=== PATIENT | male | born 1985 | race Caucasian/White ===

== ENCOUNTER 2018-02-28 09:52 | Emergency (ER) | payer SELFPAY ==
[2018-02-28 10:07] VITALS: BP 141/84
--- NOTE | 2018-02-28 10:37 | UC ---
General HPI - HPI Summary HPI Summary: This pt is a 32 y/o male presenting to [facility] c/o runny nose, sinus congestion, post nasal drip for the past 5 days. Pt additionally reports chills, sinus pain , sore throat. Denies chest pain, SOB, cough. PMHx of HTN. - History of Current Complaint Chief Complaint: UCRespiratory Stated Complaint: SINUS COMPLAINT Time Seen by Provider: 02/28/18 10:10 Hx Obtained From: Patient Onset/Duration: Lasting Days - 5, Still Present Timing: Constant Current Severity: Mild Pain Intensity: 3 Pain Location at: throat Aggravating: nothing Alleviating: nothing Associated Signs & Symptoms: Positive: Other - POS: chills, sore throat, nasal discharge, sinus pain.. Negative: Abdominal Pain, Cough, Chest Pain, Fever, Nausea, SOB, Vomiting - Allergy/Home Medications Allergies/Adverse Reactions: Allergies Allergy/AdvReac Type Severity Reaction Status Date / Time bee venom protein (honey bee) Allergy Numbness Verified 02/28/18 10:07 Home Medications: Home Medications amLODIPine TAB* [Norvasc 5 mg TAB*] 10 mg PO DAILY 02/28/18 [History Confirmed 02/28/18] PMH/Surg Hx/FS Hx/Imm Hx Other Endocrine History: DENIES: diabetes Cardiovascular History: Hypertension Psychological History: Depression - Surgical History Surgical History: None - Family History Known Family History: Positive: Diabetes - Social History Alcohol Use: Daily Alcohol Amount: 4-6 beers/day Substance Use Type: None Substance Use Comment - Amount & Last Used: patient denies illicit drug use Smoking Status (MU): Heavy Every Day Tobacco Smoker Type: Cigarettes Amount Used/How Often: 1 ppd - Immunization History Most Recent Influenza Vaccination: believes he received "many" years ago Most Recent Tetanus Shot: states he thinks he had tetanus shot in the last 8-10 years Most Recent Pneumonia Vaccination: has not received Review of Systems Constitutional: Chills, Other - NEG: fever Skin: Negative Eyes: Negative ENT: Sore Throat, Nasal Discharge, Sinus Congestion, Sinus Pain/Tenderness Respiratory: Negative Cardiovascular: Negative Gastrointestinal: Negative Genitourinary: Negative Motor: Negative Neurovascular: Negative Musculoskeletal: Negative Neurological: Negative Psychological: Negative All Other Systems Reviewed And Are Negative: Yes Physical Exam - Summary Physical Exam Summary: VITAL SIGNS: Reviewed. GENERAL: Patient is a well-developed and nourished male who is lying comfortable in the stretcher. Patient is not in any acute respiratory distress. HEAD AND FACE: Normocephalic. Clear nasal discharge. Positive sinus tenderness. EYES: PERRLA, EOMI x 2. EARS: Hearing grossly intact. MOUTH: Oropharynx within normal limits. NECK: Supple, trachea is midline, no adenopathy, no JVD, no carotid bruit. CHEST: Symmetric, no tenderness at palpation LUNGS: Clear to auscultation bilaterally. No wheezing or crackles. CVS: Regular rate and rhythm, S1 and S2 present, no murmurs or gallops appreciated. ABDOMEN: Soft, non-tender. Bowel sounds are normal. No abdominal abnormal pulsations. EXTREMITIES: Full ROM in all major joints, no edema, no cyanosis or clubbing. NEURO: Alert and oriented x 3. No acute neurological deficits. Speech is normal and follows commands. SKIN: Dry and warm Triage Information Reviewed: Yes Vital Signs: Initial Vital Signs Temp 98.8 F 02/28/18 10:02 Pulse 82 02/28/18 10:02 Resp 18 02/28/18 10:02 BP 141/84 02/28/18 10:02 Pulse Ox 96 02/28/18 10:02 Vital Signs Reviewed: Yes Course/Dx - Course Course Of Treatment: Pt is a 32 y/o male presenting to [facility] c/o runny nose, sinus congestion, post nasal drip for the past 5 days. Pt additionally reports chills, sinus pain, sore throat. Denies chest pain, SOB, cough. PMHx of HTN. Rapid strep test is negative. Therefore I believe that the patient has an upper respiratory infection. The patient will take ibuprofen or Tylenol for the pain. The patient was also given a prescription for Flonase since the patient has history of allergies. He was recommended to follow up with his primary care provider and return to the urgent care for any worsening symptoms. Patient is hemodynamically stable alert and oriented 3. The patient was found to have increased blood pressure in UC. The patient will follow up with PCP for better control of BP. - Differential Dx - Multi-Symptom Provider Diagnoses: URI Discharge - Sign-Out/Discharge Documenting (check all that apply): Patient Departure - Discharge home All imaging exams completed and their final reports reviewed: No Studies - Discharge Plan Condition: Stable Disposition: HOME Prescriptions: Fluticasone NASAL SPRAY 50MCG* [Flonase NASAL SPRAY 50MCG*] 2 spray BOTH NARES DAILY #1 btl Patient Education Materials: Upper Respiratory Infection (DC) Forms: *Work Release Referrals: [facility] [Outside] Additional Instructions: Take medications as instructed and adhere to plan Take Acetaminophen or ibuprofen for pain or fever Increase your fluid intake Return to the or go to the emergency department if symptoms worsen Follow-up with primary care physician in next 2-3 days - Billing Disposition and Condition Condition: STABLE Disposition: Home - Attestation Statements Document Initiated by Scribe: Yes Documenting Scribe: Nhi Darden Provider For Whom Scribe is Documenting (Include Credential): Kingsley Stephens MD Scribe Attestation: Nhi Rivera scribed for Kingsley Stephens MD on 02/28/18 at 1416. Scribe Documentation Reviewed: Yes Provider Attestation: The documentation as recorded by the Nhi cabrera accurately reflects the service I personally performed and the decisions made by Kingsley morales MD
== END 2018-02-28 11:08 | disposition home or self-care (01) ==
LOC: UCEAST 09:52
DX: J06.9 Acute upper respiratory infection, unspecified (principal); Z91.030 Bee allergy status; F17.210 Nicotine dependence, cigarettes, uncomplicated
CPT/HCPCS: 87651; 99212; G0463